=== PATIENT | male | born 1990 | race American Indian/Alaskan Native ===

== ENCOUNTER 2020-12-06 18:22 | Emergency (ER) | payer SELFPAY ==
[2020-12-06 18:57] VITALS: BP 115/81
[2020-12-06] MEDS ORDERED: traMADol 50 MG TAB PO ONE (20:13)
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
--- NOTE | 2020-12-06 20:45 | XRay Report ---
CHEST 2 VIEWS INDICATION / CLINICAL INFORMATION: chest wall pain. COMPARISON: None available. FINDINGS: SUPPORT DEVICES: None. HEART / MEDIASTINUM: No significant abnormality. LUNGS / PLEURA: No significant pulmonary or pleural abnormality. No pneumothorax. ADDITIONAL FINDINGS: No significant additional findings. IMPRESSION: 1. No acute findings. Signer Name: Chadwick Andersen MD Signed: 12/06/2020 8:41 PM Workstation Name: [id number]
== END 2020-12-06 21:30 | disposition home or self-care (01) ==
LOC: ED 18:22
DX: S20.219A Contusion of unspecified front wall of thorax, initial encounter (principal); M79.18 Myalgia, other site; Z79.899 Other long term (current) drug therapy; X58.XXXA Exposure to other specified factors, initial encounter; Y93.89 Activity, other specified; Y92.89 Other specified places as the place of occurrence of the external cause; Y99.8 Other external cause status
CPT/HCPCS: 71046